=== PATIENT | female | born 2000 | race Two or more races ===

== ENCOUNTER 2024-02-26 19:54 | Emergency (ER) | payer OTHER ==
[~2024-02-26] VITALS: Ht 152.4 cm; Wt 52.2 kg
[2024-02-26] MEDS ORDERED: MESALAMINE800 MG (20:39)
[2024-02-26] MEDS ORDERED: 0.9 % SODIUM CHLORIDE 1,000 ML IV STA (21:55)
[2024-02-26] MEDS ORDERED: ONDANSETRON HCL 2 MG/ML VIAL IV ONE (22:00)
[2024-02-26] MEDS ORDERED: FAMOTIDINE/PF 20 MG/2 ML VIAL IV SCH (22:00)
[2024-02-26] MEDS ORDERED: KETOROLAC TROMETHAMINE 30 MG VIAL IV ONE (22:00)
[2024-02-26 23:11] LABS: HEMATOCRIT 35.5 % (36.0-45.00); MEAN CELL VOLUME 74.1 fL (80.00-100.00); PLATELET COUNT 500 K/uL (150-450); RED BLOOD COUNT 4.79 M/uL (4.00-6.00); RED CELL DISTRIBUTION WIDTH 16.8 % (11.5-14.5)
[2024-02-26 23:38] LABS: INR 1.13; PARTIAL THROMBOPLASTIN TIME 25.6 SECONDS (22.0-34.0); PROTHROMBIN TIME 12.2 SECONDS (9.0-11.5)
[2024-02-26 23:40] LABS: CREATININE SERUM 0.64 mg/dL (0.55-1.02); GFR 114.99; POTASSIUM 3.49 mEq/L (3.5-5.1)
[2024-02-27] MEDS ORDERED: HYOSCYAMINE SULFATE 0.125 MG TAB.SUBL SL STA (01:37)
== END 2024-02-27 02:13 | disposition home or self-care (01) ==
LOC: ER 19:56
PROVIDERS: Emergency Medicine
DX: R10.9 Unspecified abdominal pain (principal); Z88.0 Allergy status to penicillin; K50.90 Crohn's disease, unspecified, without complications